=== PATIENT | male | born 1995 | race Two or more races ===

== ENCOUNTER 2019-11-29 15:50 | Emergency (ER) | payer BC ==
[~2019-11-29] VITALS: Ht 183.5 cm; Wt 99.8 kg
--- NOTE | 2019-11-29 16:05 | Emergency Room Report ---
History of Present Illness General Chief Complaint: testicular pain Source: Patient Present Illness HPI Patient is a 24-year-old male presents after increased left-sided testicular pain. Reports having intermittent episodes over the past 2 weeks. Denies any nausea or vomiting. Denies any change in testicular lie. Reports having increased pain with increased rest. Denies any fever or vomiting. Denies any shortness of breath or recent cold exposure. Denies any testicular swelling. Had not been having any penile discharge. Denies being sexually active. Allergies: Coded Allergies: No Known Allergies (Unverified , 11/29/19) Patient History Reviewed Nursing Documentation: PMH: Agreed; PSxH: Agreed Review of Systems All Other Systems: negative except mentioned in HPI Physical Exam Sp02 EP Interpretation: reviewed, normal General Appearance: normal inspection, well appearing, no apparent distress, alert, GCS 15 Head: atraumatic ENT: normal ENT inspection, hearing grossly normal, normal voice Neck: normal inspection, full range of motion, supple, no bony tend Respiratory: normal inspection, lungs clear, normal breath sounds, no respiratory distress, no retraction, no wheezing Cardiovascular #1: regular rate, rhythm, no edema Gastrointestinal: normal inspection, normal bowel sounds, non tender, soft, no guarding, no hernia Genitourinary: no CVA tenderness, other - Testicular lie normal Musculoskeletal: normal inspection, back normal, normal range of motion Neurologic: alert, motor strength/tone normal, basic sciences dean III-XII nml as tested, oriented x3, responsive, speech normal, normal inspection Psychiatric: normal inspection, judgement/insight normal, mood/affect normal Skin: other - Increased slight redness to the perineal skin without any evidence of gross infection. Medical Decision Making Diagnostic Impression: Primary Impression: Tinea cruris Additional Impression: Testicular pain, unspecified ER Course Patient presented for left testicular pain. Differential diagnosis include was not limited to testicular torsion, mass, urinary tract infection among others. Ultrasound imaging was ordered due to patient's complaint of left-sided testicular pain.Ultrasound imaging showed left-sided normal testicle however there does appear to be some abnormal to the right side consistent with a possible mass. See radiology report for full details. Patient was advised to follow-up with urology within a week for further evaluation and treatment. He is advised to return if any worse. Labs Test 11/29/19 16:18 Urine Color Pale yellow Urine Appearance Clear Urine pH 6 (4.5-8.0) Urine Specific Caspian 1.015 (1.005-1.035) Urine Protein Negative (NEGATIVE) Urine Glucose (UA) Negative (NEGATIVE) Urine Ketones 3+ (NEGATIVE) Urine Blood 2+ (NEGATIVE) Urine Nitrite Negative (NEGATIVE) Urine Bilirubin Negative (NEGATIVE) Urine Urobilinogen Normal MG/DL (0.0-1.0) Urine Leukocyte Esterase Negative (NEGATIVE) Urine RBC 2-4 /HPF (0 - 0) Urine WBC 0-2 /HPF (0 - 0) Urine Squamous Epithelial Cells Few /LPF (NONE/OCC) Urine Bacteria Few /HPF (NONE) Status: improved Disposition: HOME, SELF-CARE Condition: Stable Scripts Miconazole (MICONAZOLE) 5 Gm Powder 1 APPLIC TOPIC TWICE A DAY for 14 Days, #60 GM Prov: Hernandez Solorzano MD 11/29/19 Hernandez Solorzano MD Nov 29, 2019 16:05
--- NOTE | 2019-11-29 16:05 | NUR ---
ED Nurse Note: Urine specimen collected and sent to lab.
[2019-11-29 16:11] VITALS: BP 125/80
--- NOTE | 2019-11-29 16:11 | NUR ---
ED Nurse Note: Patient walked in to ED from home c/o left testicular pain. Per pt, he was referred by Dr. Gallegos. Denies penile swelling and discharges. Denies difficulty urinating. Not in any distress. Afebrile. ERMD at bedside.
[2019-11-29] MEDS ORDERED: MICONAZOLE5 GM TOPIC (16:21)
--- NOTE | 2019-11-29 16:27 | NUR ---
ED Nurse Note: US at bedside.
[2019-11-29 16:53] LABS: APPEARANCE,URINE CLEAR; BILIRUBIN, URINE NEGATIVE (NEGATIVE); COLOR,URINE PALE YELLOW; GLUCOSE, URINE (UA) NEGATIVE (NEGATIVE); KETONES,URINE 3+ (NEGATIVE); LEUKOCYTE ESTERASE ,URINE NEGATIVE (NEGATIVE); NITRITE,URINE NEGATIVE (NEGATIVE); PH,URINE 6 (4.5-8.0); PROTEIN,URINE NEGATIVE (NEGATIVE); UROBILINOGEN,URINE NORMAL MG/DL (0.0-1.0)
[2019-11-29 17:45] VITALS: BP 125/80
--- NOTE | 2019-11-29 17:45 | NUR ---
ED Nurse Note: Pt cleared by ERMD for discharge. DC instructions/prescription was given and explained to pt and verbalized understanding of teachings. All medical deviecs such as ID band removed. Pt is AAO x4, ambulatory and left with all personal belongings.
--- NOTE | 2019-11-29 18:11 | Diagnostic Imaging Report ---
EXAM: US Scrotum CLINICAL HISTORY: PAIN TECHNIQUE: Real-time ultrasound of the scrotum with color Doppler and image documentation. COMPARISON: No relevant prior studies available. FINDINGS: Right testicle: There is a subtle hypoechoic focus in the posterior- superior right testis measuring 1.9 x 1.5 cm on series 1, image 3840. Neoplasm is possible. Correlate for palpable abnormality. No sonographic findings of testicular torsion. Left testicle: Unremarkable. No mass. No torsion. Epididymides: Unremarkable. Scrotum: Unremarkable. IMPRESSION: There is a subtle hypoechoic focus in the posterior-superior right testis measuring 1.9 x 1.5 cm on series 1, image 3840. Neoplasm is possible. Correlate for palpable abnormality. No sonographic findings of testicular torsion.
== END 2019-11-29 17:45 | disposition home or self-care (01) ==
LOC: EMR 16:05
DX: B35.6 Tinea cruris (principal); N50.812 Left testicular pain
CPT/HCPCS: 76870; 81003; 99284